=== PATIENT | female | born 2005 | race African-American/Black ===

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

== ENCOUNTER 2024-06-12 21:04 | Emergency (ER) | payer OTHER ==
[2024-06-12] MEDS ORDERED: predniSONE 20 MG TAB ONE (23:03)
[2024-06-12] MEDS ORDERED: Ketorolac Tromethamine 30 MG (1 mL) VIAL ONE ×2 (23:03→23:09)
[2024-06-12] MEDS ORDERED: cefTRIAXone (ROCEPHIN) 500 MG VIAL ONE (23:04)
[2024-06-12] MEDS ORDERED: Sterile Water 10 ML ONE (23:06)
== END 2024-06-13 00:05 | disposition home or self-care (01) ==
LOC: ERS 21:04
DX: J02.0 Streptococcal pharyngitis (principal)
CPT/HCPCS: 87430; 96372; J0696; J1885; J7512

== ENCOUNTER 2025-08-11 06:45 | Emergency (ER) | payer OTHER, SELFPAY ==
[2025-08-11] MEDS ORDERED: Aspirin Chewable 81 MG TAB ONE (07:11)
[2025-08-11 07:48] LABS: #Monocytes 0.59 10x3/uL (0.11-0.59); #Neutrophils 4.00 10x3/uL (1.40-6.50); %Basophils 0.4 % (0.0-1.0); %Eosinophils 6.7 % (0.0-10.0); %Lymphocytes 31.0 % (28.0-48.0); %Monocytes 7.9 % (0.0-4.0); %Neutrophils 53.9 % (31.0-61.0); Hematocrit 38.0 % (36.0-47.0); Hemoglobin 12.2 g/dL (12.0-16.0); Mean Corpuscular Hemoglobin 30.8 pg (25.0-35.0); Mean Corpuscular Volume 96.0 fL (78.0-98.0); Platelet Count 321 10x3/uL (130-400); Red Blood Cell (RBC) Count 3.96 mill/uL (4.00-5.20); White Blood Cell (WBC) Count 7.43 10x3/uL (4.8-10.8)
[2025-08-11 07:49] LABS: #Basophils 0.03 10x3/uL (0.0-0.2); #Eosinophils 0.50 10x3/uL (0.0-0.7)
[2025-08-11 08:04] LABS: ALT (SGPT) 9 U/L (Less than 34); AST (SGOT) 19 U/L (11-34); Albumin 3.7 g/dL (3.1-4.5); Alkaline Phosphatase 48 U/L (40-100); Anion Gap 14 mmol/L (10-20); BUN (Urea Nitrogen) 12 mg/dL (7.0-18.7); Bilirubin, Total 0.7 mg/dL (0.3-1.2); Calc. Creatinine Clearance 0 mL/min (70-130); Calcium 9.0 mg/dL (7.8-10.44); Carbon Dioxide 24 mmol/L (22-29); Chloride 106 mmol/L (98-107); Globulin 3.2 g/dL (2.4-3.5); Glucose 98 mg/dL (70-105); Potassium 4.2 mmol/L (3.5-5.1); Sodium 140 mmol/L (136-145)
[2025-08-11] MEDS ORDERED: Ketorolac Tromethamine 30 MG (1 mL) VIAL ONE (09:04)
== END 2025-08-11 09:07 | disposition home or self-care (01) ==
LOC: ERS 06:45
DX: M94.0 Chondrocostal junction syndrome [Tietze] (principal)
CPT/HCPCS: 71046; 80053; 84484; 85025; 85379; 93005; 96374; J1885